=== PATIENT | male | born 1950 | race Caucasian/White ===

== ENCOUNTER → 2019-06-02 | Outpatient (CLI) | payer MEDICARE, OTHER ==
[2014-03-03 10:45] VITALS: BP 139/72
[~2019-06-02] MED LIST: ALLO100T PO; ASPI325T11 PO; ATORVASTATIN CA80 MG PO; CLOP75TA PO; FENO160T PO; FLUO20CA16 PO; METF500T16 PO; MIDO5TAB PO; OMEP20TA8 PO; TOPI25TA7 PO; TRAZ-86 PO
--- NOTE | 2019-06-02 12:31 | RAD ---
EXAMINATION: Magnetic resonance imaging (MRI) of the lumbar spine without contrast 06/02/2019 10:30 AM HISTORY: Low back pain with bilateral leg radiculopathy TECHNIQUE: Multiplanar multi-weighted MRI of the lumbar spine was performed without intravenous contrast using the standard lumbar spine protocol. Contrast information: None administered. COMPARISON: None available. FINDINGS: Minimal retrolisthesis of L5 on S1. Vertebral bodies demonstrate normal signal intensity on all sequences. There are no compression fractures. The conus medullaris terminates at the level of L1. The distal spinal cord signal intensity is normal. Mild disc height loss at L4-L5 and L5-S1 with annular fissures and disc desiccation. Limited views of the abdomen and pelvis show no soft tissue abnormality. The aorta is normal. L3-L4: There is mild disc bulge. There is moderate mild to moderate facet arthropathy. There is mild right neuroforaminal stenosis. There is no spinal canal stenosis. There is mild narrowing of the right lateral recess without definite impingement of the traversing nerve. L4-L5: Disc bulge with central disc protrusion. There is mild facet arthropathy. There is mild bilateral neuroforaminal stenosis. There is no spinal canal stenosis. There is bilateral lateral recess narrowing, right greater than left. L5-S1: There is a central disc protrusion. There is moderate facet arthropathy. There is mild bilateral neuroforaminal stenosis. There is no spinal canal stenosis. IMPRESSION: Mild degenerative changes of the lumbar spine as described in detail above. Electronically signed by: Sanjana Dupont MD (06/02/2019 12:28 PM) [id number]
== END | disposition home or self-care (01) ==
LOC: MRI 10:17
PROVIDERS: ATTEND Family Medicine
DX: M51.17 Intervertebral disc disorders with radiculopathy, lumbosacral region (principal); M48.07 Spinal stenosis, lumbosacral region; M47.26 Other spondylosis with radiculopathy, lumbar region; M12.88 Other specific arthropathies, not elsewhere classified, other specified site; M53.87 Other specified dorsopathies, lumbosacral region
CPT/HCPCS: 72148